=== PATIENT | female | born 1955 | race Caucasian/White ===

== ENCOUNTER → 2016-06-06 | Outpatient (CLI) | payer OTHER ==
[~2016-06-06] MED LIST: 3N1 COMMODE MC; ALPR0.5T6 PO; BUPR-187 PO; DOCU-144 PO; ESTR1PAT60 TD; LEVO88TA PO; MULT-761 PO; OXYC-284 PO; TRAM50TA2 PO; WALK1EAC23 MC
--- NOTE | 2016-06-06 10:24 | RADRPT ---
PROCEDURE: XR left knee. CLINICAL INDICATION: Knee pain TECHNIQUE: AP and lateral weight bearing views and a sunrise view are available for review. COMPARISON: 04/01/2016 FINDINGS: There is a medial tibial femoral compartment joint replacement. There is no evidence of loosening of the prosthesis. There is mild osteoarthrosis involving the patellofemoral compartment. This is associated with osteo phytosis. The osseous structures are otherwise normal in mineralization, architecture and alignment. No fractu res are identified. No osseous lesions are identified. The soft tissues are unremarkable. IMPRESSION: Medial tibial femoral compartment joint replacement Mild osteoarthrosis involving the patellofemoral compartment. RPTAT: [facility] .Rico Estevez MD, MD Date Time Electronically viewed and signed by .Rico Estevez MD, on 06/06/2016 10:24 .B/
== END | disposition home or self-care (01) ==
LOC: HKI 09:49
PROVIDERS: ATTEND Orthopaedic Surgery
DX: Z47.1 Aftercare following joint replacement surgery (principal); Z96.652 Presence of left artificial knee joint; Z96.641 Presence of right artificial hip joint
CPT/HCPCS: 73562; G0463